=== PATIENT | female | born 1975 | race Caucasian/White ===

== ENCOUNTER 2018-06-08 04:48 | Inpatient (IN) | payer OTHER ==
[2018-06-02 17:32] VITALS: BMI 33.4
[2018-06-08] MEDS ORDERED: CEFAZOLIN 2 GM in DEXTROSE 5%-WATER - 100 ML IVPB ONE (07:15)
[2018-06-08] MEDS ORDERED: PHENAZOPYRIDINE HCL 100 MG TABLET (FP) PO ONE (07:17)
--- NOTE | 2018-06-08 07:21 | HP ---
History & Physical Update - History History: No Change - Physical Physical: No Change - Assessment Assessment: No Change - Plan Plan: No Change (No change in HP on 06/02/18)
[2018-06-08] MEDS ORDERED: PHENAZOPYRIDINE HCL 100 MG TABLET (FP) ONE (09:01)
[2018-06-08] MEDS ORDERED: ceFAZolin SODIUM 1 GM VIAL ONE (09:01)
[2018-06-08] MEDS ORDERED: fentaNYL CITRATE 250 MCG/5 ML VIAL ONE (10:01)
[2018-06-08] MEDS ORDERED: ROCURONIUM BROMIDE 50 MG/5 ML VIAL ONE ×2 (10:01→12:22)
[2018-06-08] MEDS ORDERED: ROPIVACAINE HCL 0.5% 30ML VIAL ONE (10:46)
[2018-06-08] MEDS ORDERED: DEXAMETHASONE SOD PHOSPHATE/PF 10 MG/ML SDV ONE (10:46)
[2018-06-08] MEDS ORDERED: MIDAZOLAM HCL 2 MG/2 ML SINGLE DOSE VIAL ONE ×2 (10:47)
[2018-06-08] MEDS ORDERED: PROPOFOL 20 ML ONE (12:21)
[2018-06-08] MEDS ORDERED: ceFAZolin SODIUM 1 GM VIAL IVPB ONE (12:23)
[2018-06-08] MEDS ORDERED: BUPIVACAINE HCL/PF 0.5% (5MG/ML) 10 ML VIAL IJ ONE (13:08)
--- NOTE | 2018-06-08 14:48 | OP ---
Operative Note - Note: Operative Date: 06/08/18 Pre-Operative Diagnosis: uterine fibroids, metrorrhagia Operation: Robotic assisted hysterectomy, bilateral salpingectomy Post-Operative Diagnosis: Same as Pre-op Surgeon: Chiquita Frias Librarian Head: Shane Villareal Anesthesiologist/FILM PROCESSING SUPERVISOR: Osito Sands Anesthesia: General Specimens Removed: Uterus and bilateral tubes Estimated Blood Loss (mls): 50 Drains, Volume Out (mls): 600 Fluid Volume Replaced (mls): 1,000 Operative Report Dictated: Yes
--- NOTE | 2018-06-08 14:48 | SURG ---
Surgery Review Rn Note Review Rn: Shane Villareal PA-C Date of Service: 06/08/18 Diagnosis: Uterine fibroids and metrorrhagia Procedure: Robotic assisted hysterectomy, bilateral salpingectomy I was present for the entirety of the operative procedure. For further detail, please refer to operative report. Visit type - Case Type Case Type: Scheduled - New patient This patient is new to me today: Yes Date on this admission: 06/08/18
[2018-06-08] MEDS ORDERED: ACETAMINOPHEN 1000 MG/100 ML VIAL (NON FORMULARY) IVPB ONE (14:52)
[2018-06-08] MEDS ORDERED: traMADol HCL 50 MG TABLET PO PRN (14:54)
[2018-06-08] MEDS ORDERED: ACETAMINOPHEN INJECTION 100 ML IVPB ONE (15:13)
[2018-06-08] MEDS ORDERED: oxyCODONE HCL 5 MG TABLET PO PRN (15:43)
[2018-06-08] MEDS ORDERED: ONDANSETRON 4 MG/2 ML VIAL IVPUSH PRN (15:43)
[2018-06-08] MEDS ORDERED: LACTATED RINGERS SOLUTION 1,000 ML IV SCH (15:45)
[2018-06-08] MEDS: BSS (NA/CA/MG/K) BALANCED SALT SOLUTION OPHTH SOLN 15 ML BOTTLE OU ONE (16:05)
[2018-06-08 16:26] LABS: BASO % 0.2 % (0-2.0); HEMATOCRIT 36.8 % (32.4-45.2); HEMOGLOBIN 12.2 GM/dL (10.7-15.3); LYMPH % 4.7 % (8-40); MCH 27.9 pg (25.7-33.7); MCHC 33.1 g/dl (32.0-36.0); MEAN CELL VOLUME 84.4 fl (80-96); MEAN PLT VOLUME 8.5 fl (7.5-11.1); MONO % 0.5 % (3.8-10.2); NEUT % 94.6 % (42.8-82.8); PLATELET COUNT 209 K/MM3 (134-434); RBC 4.36 M/mm3 (3.60-5.2); RDW 16.7 % (11.6-15.6); WHITE BLOOD COUNT 13.7 K/mm3 (4.0-10.0)
[2018-06-08] MEDS ORDERED: CEFAZOLIN 2 GM/D5W 2 GM/50 ML ML IVPB SCH (18:00)
[2018-06-08] MEDS ORDERED: TETRACAINE 0.5% OPHTH SOLN 2 ML BOTTLE ONE (18:01)
--- NOTE | 2018-06-08 18:17 | PN ---
Progress Note (short form) - Note Progress Note: Pt. c/o severe left eye pain. Pain with opening. No visual changes. Pt. has a hard time explaining the quality of pain. Likely a corneal abrasion. Tetracaine gtts x 2 given with complete resolution of the pain. Will foillow up in the am. If not improved by then, will consult ophthalmology.
[2018-06-08 18:26] LABS: ANISOCYTOSIS 1+; OVALOCYTE 1+; PLATELET ESTIMATE ADEQUATE
[2018-06-08] MEDS ORDERED: TETRACAINE 0.5% OPHTH SOLN 2 ML BOTTLE OS PRN ×2 (19:43→22:11)
[2018-06-08] MEDS: ACETAMINOPHEN 325 MG TABLET (FP) PO SCH ×2 (20:00→21:14)
[2018-06-08] MEDS: CEFAZOLIN 2 GM/D5W 2 GM/50 ML ML IVPB SCH (21:10)
[2018-06-08] MEDS: oxyCODONE HCL 10 MG SUSTAINED ACTING TABLET PO SCH (21:13)
[2018-06-09] MEDS: CEFAZOLIN 2 GM/D5W 2 GM/50 ML ML IVPB SCH ×2 (03:39→11:56)
[2018-06-09] MEDS: ACETAMINOPHEN 325 MG TABLET (FP) PO SCH ×4 (03:39→22:17)
[2018-06-09 08:41] LABS: BASO % 0.1 % (0-2.0); HEMATOCRIT 32.9 % (32.4-45.2); HEMOGLOBIN 10.9 GM/dL (10.7-15.3); MCH 27.4 pg (25.7-33.7); MCHC 33.1 g/dl (32.0-36.0); MEAN CELL VOLUME 82.7 fl (80-96); MEAN PLT VOLUME 8.6 fl (7.5-11.1); MONO % 3.5 % (3.8-10.2); NEUT % 84.4 % (42.8-82.8); PLATELET COUNT 216 K/MM3 (134-434); RBC 3.97 M/mm3 (3.60-5.2); RDW 16.6 % (11.6-15.6)
--- NOTE | 2018-06-09 08:48 | PN ---
Progress Note (short form) - Note Progress Note: surgery POD #1 robotic assisted laparoscopic hysterectomy, bilateral saplingectomy, patient seen and examined at the bedside. She is tolerating a clear diet, passing gas and her pain is controlled. She denies any CP, SOB, N/V/D fever or chills. Vital Signs Temp 98.3 F 06/09/18 06:00 Pulse 71 06/09/18 06:00 Resp 20 06/09/18 06:00 BP 92/57 06/09/18 06:00 Pulse Ox 99 06/08/18 17:00 Intake & Output 06/08/18 06/08/18 06/09/18 11:59 23:59 11:59 Intake Total 6680 373 0406 Output Total 1400 800 Balance 1000 -1000 675 Intake: IV 3372 364 7062 Lactated Ringers Solution 1375 1,000 ml @ 125 mls/hr IV ASDIR ANTWAN Rx#: [id number] IVPB 100 Output: Urine 1300 800 Rao 600 800 Estimated Blood Loss 100 Other: Voiding Method Indwelling Catheter CBC, BMP 06/09/18 07:10 PE: A&Ox3, NAD unlabored resp on RA ABD: Obese, soft, supple with diffuse TTP throughout appropriate to status. Incisions c/d/i with surrounding tissue intact and no tracking erythema or d/c. LE: compartments soft, supple and non-tender to palpation Problem List - Problems (1) Fibroid uterus Assessment/Plan: POD #1 robotic hysterectomy, doing well. 1) Trial of void this morning 2) Regular diet 3) Oob as tolerated 4) Simethicone for gas 5) D/c home this afternoon if tolerating diet, voiding and pain controlled Evaluation and plan discussed with Dr Frias Code(s): D25.9 - LEIOMYOMA OF UTERUS, UNSPECIFIED
--- NOTE | 2018-06-09 10:16 | PN ---
Progress Note (short form) - Note Progress Note: Anesthesia postop note 43 y/o F s/p GA for Laparoscopic hysterectomy POD#1, vss, aaox3, no complaints, pain fairly well controlled. Had eye pain immediately postop. Resolved with topical anesthetic. Did not mention anything about her eye this morning. No anesthesia complications.
[2018-06-09] MEDS: SIMETHICONE 80 MG TAB.CHEW (FP) PO PRN ×3 (10:21→22:17)
[2018-06-09] MEDS: oxyCODONE HCL 10 MG SUSTAINED ACTING TABLET PO SCH ×2 (10:21→22:18)
[2018-06-09] MEDS: ENOXAPARIN NA (PORCINE) 40 MG/0.4 ML DISP.SYRIN SQ SCH (10:24)
[2018-06-09] MEDS: oxyCODONE HCL 5 MG TABLET PO PRN ×2 (13:29→17:59)
[2018-06-09] MEDS: IBUPROFEN 600 MG TABLET (FP) PO PRN ×2 (13:29→17:58)
[2018-06-10] MEDS: ACETAMINOPHEN 325 MG TABLET (FP) PO SCH ×2 (03:50→09:36)
[2018-06-10] MEDS: SIMETHICONE 80 MG TAB.CHEW (FP) PO PRN (05:47)
[2018-06-10] MEDS: oxyCODONE HCL 5 MG TABLET PO PRN (05:47)
[2018-06-10] MEDS: IBUPROFEN 600 MG TABLET (FP) PO PRN (05:51)
[2018-06-10] MEDS: BSS (NA/CA/MG/K) BALANCED SALT SOLUTION OPHTH SOLN 15 ML BOTTLE OU ONE (07:10)
--- NOTE | 2018-06-10 07:13 | PN ---
Progress Note (SOAP) - Subjective Chief Complaint: Pt deeling better pt was unable to go home due to pain - Current Medications Current Medications: Active Medications Acetaminophen (Tylenol -) 650 mg PO Q6H [facility] Stop: 06/11/18 15:44 Last Admin: 06/10/18 03:50 Dose: Not Given Enoxaparin Sodium (Lovenox -) 40 mg SQ DAILY [facility] Last Admin: 06/09/18 10:24 Dose: 40 mg Fentanyl (Sublimaze Injection -) 50 mcg IVPUSH [id number] PRN PRN Reason: PAIN-PACU ORDER X 4 DOSES ONLY Last Admin: 06/08/18 15:15 Dose: 50 mcg Ibuprofen (Motrin -) 600 mg PO Q4H PRN PRN Reason: PAIN LEVEL 3-5 Last Admin: 06/10/18 05:51 Dose: 600 mg Ondansetron HCl (Zofran Injection) 4 mg IVPUSH Q6H PRN PRN Reason: NAUSEA AND/OR VOMITING Oxycodone HCl (Roxicodone -) 5 mg PO Q3H PRN PRN Reason: PAIN LEVEL 1-5 Last Admin: 06/09/18 07:32 Dose: 5 mg Oxycodone HCl (Roxicodone -) 10 mg PO Q3H PRN PRN Reason: PAIN LEVEL 6-10 Last Admin: 06/10/18 05:47 Dose: 10 mg Oxycodone HCl (Oxycontin -) 10 mg PO BID [facility] Stop: 06/11/18 15:43 Last Admin: 06/09/18 22:18 Dose: 10 mg Simethicone (Mylicon -) 80 mg PO Q4H PRN PRN Reason: GAS Last Admin: 06/10/18 05:47 Dose: 80 mg Tetracaine HCl (Pontocaine) 2 drop OS Q1H PRN PRN Reason: PRN 24 HRS Last Admin: 06/08/18 22:00 Dose: 2 drop - Objective Vital Signs: Vital Signs Temperature 98.7 F 06/10/18 06:00 Pulse Rate 58 L 06/10/18 06:00 Respiratory Rate 18 06/10/18 06:00 Blood Pressure 109/59 06/10/18 06:00 O2 Sat by Pulse Oximetry (%) 99 06/09/18 21:00 Constitutional: Yes: Well Nourished, No Distress Gastrointestinal: Yes: WNL, Normal Bowel Sounds, Soft Breast(s): Yes: WNL Musculoskeletal: Yes: WNL Extremities: Yes: WNL Peripheral Pulses WNL: No Edema: No Neurological: Yes: WNL, Alert, Oriented Labs Lab Results: CBC, BMP 06/09/18 07:10 Problem List - Problems (1) Fibroid uterus Code(s): D25.9 - LEIOMYOMA OF UTERUS, UNSPECIFIED (3) H/O hysterectomy with unilateral oophorectomy Code(s): Z90.710 - ACQUIRED ABSENCE OF BOTH CERVIX AND UTERUS; Z90.721 - ACQUIRED ABSENCE OF OVARIES, UNILATERAL (4) H/O: hysterectomy Code(s): Z90.710 - ACQUIRED ABSENCE OF BOTH CERVIX AND UTERUS Assessment/Plan Abdominal pain SP robotic hysterectomy Plan DC home RTO 2 week
[2018-06-10] MEDS: oxyCODONE HCL 10 MG SUSTAINED ACTING TABLET PO SCH (09:35)
[2018-06-10] MEDS: ENOXAPARIN NA (PORCINE) 40 MG/0.4 ML DISP.SYRIN SQ SCH (09:37)
[2018-06-10 10:54] VITALS: BP 104/73; PULSE 64; TEMP 98.2
--- NOTE | 2018-06-11 15:26 | PATH ---
Surgical Pathology Report Patient Name: BONITA OCAMPO [facility]. Rec. #: [id number] /Age/Gender: 1975 (Age: 43) / F Account: [id number] Location: [facility] OBS/SALES SERVICE SUPERVISOR Taken: 06/08/2018 Received: 06/09/2018 Reported: 06/11/2018 Physicians: Chiquita Frias M.D. Specimen(s) Received A: UTERUS AND CERVIX B: LEFT FALLOPIAN TUBE C: RIGHT FALLOPIAN TUBE D: CONTRACEPTIVE CLIP Clinical History Fibroid uterus Final Diagnosis A. UTERUS AND CERVIX, ROBOTIC-ASSISTED LAPAROSCOPIC TOTAL ABDOMINAL HYSTERECTOMY: SECRETORY ENDOMETRIUM. MYOMETRIUM WITH INTRAMURAL LEIOMYOMA(TA). CERVIX WITHOUT SIGNIFICANT PATHOLOGIC FINDINGS. B. FALLOPIAN TUBE, LEFT, SALPINGECTOMY: FALLOPIAN TUBE WITH PARATUBAL CYST INCLUDING FIMBRIATED END AND FULL LUMINAL PORTION. C. FALLOPIAN TUBE, RIGHT, SALPINGECTOMY: UNREMARKABLE FALLOPIAN TUBE INCLUDING FIMBRIATED END AND FULL LUMINAL PORTION. D. CONTRACEPTIVE CLIP, REMOVAL: CONSISTENT WITH CONTRACEPTIVE CLIP. MACROSCOPIC DIAGNOSIS. Electronically Signed Edda Virgen M.D. Gross Description A. Received in formalin labeled "uterus and cervix," is a 294 g uterus with an attached cervix and no attached adnexa. The specimen measures 11.7 cm from superior to inferior, 7.5 cm from left to right and 5.8 cm from the anterior to posterior. The serosa is maravilla-haney and smooth. The attached cervix measures 4.5 cm in length and averages 3.8 cm in diameter. The cervix is maravilla-pink, smooth and glistening. The endocervix is unremarkable. The endometrial cavity measures 5.3 cm in length and 3.4 cm from cornu to cornu. The endometrium is maravilla-red and measures up to 0.3 cm in thickness. The myometrium displays multiple intramural nodules, measuring up to 2.2 cm in greatest dimension. The remaining myometrium is maravilla-pink and averages 2.8 cm in thickness. Supervisor Ovens sections are submitted in 8 cassettes as follows: 1-anterior cervix; 2-posterior cervix; 8-8-fbhmmtqe endomyometrium; 7-6-akdzylxar endomyometrium; 8-4-owssnoawel nodules. B. Received in formalin labeled "left fallopian tube," is a 4.3 cm in length fimbriated portion of fallopian tube. The outer surface is haney purple with a focal 1.3 cm greatest dimension paratubal cyst attached. Sectioning reveals 2 green metallic clips and an unremarkable fallopian tube lumen. Supervisor Ovens sections are submitted in 2 cassettes as follows: 1-fimbria; 2-cross sections of fallopian tube and paratubal cyst. C. Received in formalin labeled "right fallopian tube," is a 3 cm in length fimbriated portion of fallopian tube. The outer surface is haney purple and smooth. Sectioning reveals an unremarkable lumen. Supervisor Ovens sections are submitted in 2 cassettes as follows: 1-fimbria; 2-cross sections of fallopian tube. D. Received fresh labeled "contraceptive clip," is a 1.4 cm in greatest dimension haney metallic clip. No soft tissue is present. No sections are submitted, gross only. 06/10/2018 [facility]06/10/2018
--- NOTE | 2018-06-15 18:57 | OP ---
DATE OF OPERATION: 06/08/2018 PREOPERATIVE DIAGNOSIS: Leiomyomatous uterus and menometrorrhagia. OPERATION: Robotic hysterectomy and bilateral salpingectomy. POSTOPERATIVE DIAGNOSIS: Leiomyomatous uterus and menometrorrhagia. SURGEON: Moy Mckeon MD WOOD CARVER HAND: ADRIAN Musa NURSE MATHEMATICAL SCIENCES PROFESSOR: Osito Sands ANESTHESIOLOGIST: Pipe Chahal MD ANESTHESIA: General. SPECIMEN REMOVED: Tubes and ovaries. ESTIMATED BLOOD LOSS: 50 mL. DESCRIPTION OF PROCEDURE: The patient was taken to the operating room and placed in dorsal lithotomy position, prepped and draped in the usual sterile fashion. A time-out was performed in accordance with hospital regulation. A speculum was placed in the vagina. Anterior lip of the cervix was grasped with a single-tooth tenaculum. The cervix was then dilated to accommodate the uterine manipulator. Rao catheter was inserted into the bladder. Attention was then drawn to the umbilicus where an 8-mm umbilical incision was made. Veress needle was inserted into the cavity. Approximately 3-4 L of CO2 was insufflated in the cavity. Veress needle was then removed, and an 8-mm trocar was then inserted. Laparoscope and camera visualization revealed leiomyomatous uterus and tubes and ovaries noted to be normal. Two trocars were placed on the left side after skin incisions were made. A 5-mm incision was made in the upper left abdomen, and parallel to the umbilical inches, an 8-mm incision was then made, and trocar was inserted under direct visualization. Two trocars were placed on the right side. An 8-mm incision was made, and 8 cm apart each incision was made. Under direct visualization, trocars were inserted. The instruments were then attached. The Da Renny robot was side docked to the patient's bedside, and instruments were then attached. A tenaculum and Endo Corey on the right and a vessel sealer on the left. Round ligament was identified, clamped, and cut on the left, and vesicouterine reflection was then entered, and utero-ovarian ligament was identified, clamped, and cut. Uterine artery was identified, clamped, and cut. Cardinal ligament was identified, clamped, and cut. After vesicouterine reflection was entered, the bladder was bluntly dissected out of the operative field. The Endo Corey were then used to open the vagina. The same procedure was repeated on the right side. The vagina was then cut using Endo Corey, and uterus was then removed. Tubes were bilaterally grasped. Vessel sealer was then used to remove the tubes bilaterally and remove from the vagina. The suture was then used to continuous and locking stitch using V-Lock suture, and vagina was then closed. Hemostasis was achieved. Pedicles were all identified and found to be normal. The ureter was identified and found to have peristalsis. Hemostasis was achieved, and the patient had tolerated procedure well. Estimated blood loss 50 mL. MOY MCKEON M.D. [id number]
== END 2018-06-10 11:10 | disposition home or self-care (01) | DRG 519 ==
LOC: JSAMEDAYSX 04:48 → EDSTATUS 10:00 → J3W 16:44
PROVIDERS: ADMIT Obstetrics & Gynecology; ATTEND Obstetrics & Gynecology
PROC: 0UT74ZZ Resection of Bilateral Fallopian Tubes, Percutaneous Endoscopic Approach (ICD-10-PCS; 2018-06-08)
PROC: 8E0W0CZ Robotic Assisted Procedure of Trunk Region, Open Approach (ICD-10-PCS; 2018-06-08)
PROC: 0UT94ZZ Resection of Uterus, Percutaneous Endoscopic Approach (ICD-10-PCS; principal; 2018-06-08 09:45)
DX: D25.9 Leiomyoma of uterus, unspecified (principal); S05.02XA Injury of conjunctiva and corneal abrasion without foreign body, left eye, initial encounter; E66.8 Other obesity; Z68.33 Body mass index [BMI] 33.0-33.9, adult
CPT/HCPCS: 36415; 84703; 85025; 86900; 88300-TC; 88302-TC; 88307-TC; 94760; J0131